=== PATIENT | male | born 1965 | race African-American/Black ===

== ENCOUNTER 2020-05-20 14:42 | Emergency (ER) | payer OTHER ==
[2020-05-20 15:22] LABS: Absolute Lymphocytes (CBC) 1.5 K/uL (0.7-4.9); Basophils % 1.3 % (0-1.3); Hematocrit 47.1 % (39.6-49.0); Lymphocytes % 32.3 % (15.3-44.8); MPV 9.8 fL (7.6-11.3); Protime INR 1.03; RBC Red Blood Cell Count 5.42 M/uL (4.33-5.43)
[2020-05-20 15:48] LABS: ALT/SGPT 30 U/L (12-78); AST/SGOT 19 U/L (15-37); Albumin 3.8 g/dL (3.4-5.0); Alkaline Phosphatase 60 U/L (45-117); BUN Blood Urea Nitrogen 26 mg/dL (7-18); Bicarbonate 23 mmol/L (21-32); Bilirubin Direct 0.1 mg/dL (0-0.2); Bilirubin Total 0.5 mg/dL (0.2-1.0); Glucose Level 106 mg/dL (74-106); Magnesium 2.1 mg/dL (1.8-2.4); Potassium 3.6 mmol/L (3.5-5.1); Protein, Total 8.1 g/dL (6.4-8.2); Sodium Level 139 mmol/L (136-145); Troponin (Emerg Dept Use Only) < 0.02 ng/mL (0.0-0.045)
--- NOTE | 2020-05-20 16:08 | RAD REPORT ---
EXAM DESCRIPTION: Dima Single View05/20/2020 3:35 pm CLINICAL HISTORY: Chest pain COMPARISON: none FINDINGS: The lungs appear clear of acute infiltrate. The heart is normal size IMPRESSION: No acute abnormalities displayed
[2020-05-20 16:11] LABS: NT PRO-BNP < 5 pg/mL (<125)
--- NOTE | 2020-05-20 18:15 | ER ---
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 Reports HX of CAD and heart attack. Denies Injury to chest. Denies other symptoms EMS states: Chest pain. Nitro SL x 2 given. IV started on RFA 20G. Sinus tach on 12L HR 102. BGL 109. Coronavirus screen: Client denies travel out of the [place] in the last 14 days. At this time, the client does not indicate any symptoms associated with coronavirus-19. The client reports previous COVID testing was negative. Date of collection: March 2020. Ebola Screen: Patient negative for fever greater than or equal to 101.5 degrees Fahrenheit, and additional compatible Ebola Virus Disease symptoms Patient denies exposure to infectious person. Patient denies travel to an Ebola-affected area in the 21 days before illness onset. No symptoms or risks identified at this time. Initial Sepsis Screen: Does the patient meet any 2 criteria? No. Patient's initial sepsis screen is negative. Does the patient have a suspected source of infection? No. Patient's initial sepsis screen is negative. Risk Assessment: Do you want to hurt yourself or someone else? Patient reports no desire to harm self or others. Onset of symptoms was May 20, 2020 at 12:45. 14:45 Method Of Arrival: EMS: [facility] ca1 14:45 Acuity: JHON 3 ca1 Triage Assessment: 14:55 General: Appears in no apparent distress. Behavior is calm, cooperative, appropriate ca1 for age. Pain: Complains of pain in anterior aspect of left upper chest Pain radiates to left arm Pain currently is 6 out of 10 on a pain scale. Quality of pain is described as squeezing, Pain began 2 hours ago. Is intermittent. Cardiovascular: Heart tones S1 S2 present Capillary refill < 3 seconds Patient's skin is warm and dry. Rhythm is sinus rhythm. Historical: - Allergies: 14:54 No Known Allergies; ca1 - PMHx: 14:54 CAD; Myocardial infarction; Hypertension; High Cholesterol; ca1 - PSHx: 14:54 None; ca1 - Immunization history:: Adult Immunizations up to date. - Social history:: Smoking status: Patient denies any tobacco usage or history of. Screenin:55 Abuse screen: Denies threats or abuse. Denies injuries from another. Nutritional ca1 screening: No deficits noted. Tuberculosis screening: No symptoms or risk factors identified. Fall Risk IV access (20 points). Assessment: 14:45 General: SEE TRIAGE NOTE. bp 15:55 Reassessment: ALL CURRENT ORDERS COMPLETED, PT HYPERTENSIVE ON MONITOR. bp 17:07 Reassessment: Patient states feeling better. Patient states symptoms have improved. bp Cardiovascular: Rhythm is sinus rhythm. 17:33 Reassessment: REPEAT TROP DRAWN AND SENT. RESULTS PENDING FOR DISPO. bp 17:56 Reassessment: SECOND TROPONIN RESULTED UNREMARKABLE, PROVIDER NOTIFIED. bp 18:18 Reassessment: PT D/C IN PROCESS TO TDCJ, DX WITH CHEST PAIN. TDC TRANSPORT PENDING. bp Vital Signs: 14:45 BP 100 / 78; Pulse 99; Resp 18 S; Temp 98.1(TE); Pulse Ox 96% on R/A; Weight 99.79 kg ca1 (R); Height 5 ft. 6 in. (167.64 cm) (R); Pain 6/10; 14:46 BP 100 / 78; Pulse 104; Resp 18; Temp 98.1; Pulse Ox 96% ; dh4 15:54 BP 108 / 85; Pulse 94; Resp 19; Pulse Ox 97% ; bp 17:07 BP 115 / 86; Pulse 90; Resp 12; Pulse Ox 98% ; bp 17:56 BP 126 / 85; Pulse 96; Resp 11; Pulse Ox 98% ; bp 14:45 Body Mass Index 35.51 (99.79 kg, 167.64 cm) ca1 ED Course: 14:45 Patient arrived in ED. ca1 14:46 Raulito Yang PA is PHCP. jr8 14:46 Jasen Keys MD is Attending Physician. jr8 14:54 Triage completed. ca1 14:54 Arm band placed on right wrist. ca1 14:55 Patient has correct armband on for positive identification. Bed in low position. Call ca1 light in reach. Side rails up X2. pvc monitor on. Pulse ox on. NIBP on. Warm blanket given. 14:55 No provider procedures requiring assistance completed. Maintain EMS IV. Dressing ca1 intact. Good blood return noted. Site clean \T\ dry. Gauge \T\ site: 20G RFA. Patient maintains SpO2 saturation greater than 95% on room air. 15:03 Baldemar Miller, RN is Primary Nurse. bp 15:09 Inserted saline lock: 20 gauge in right hand, using aseptic technique. Blood collected. 4 15:35 XRAY Chest (1 view) In Process Unspecified. EDMS 18:19 IV discontinued, intact, bleeding controlled, No redness/swelling at site. Pressure bp dressing applied. Administered Medications: No medications were administered Outcome: 18:14 Discharge ordered by . shirin 18:19 Discharged to Law Enforcement bp 18:19 Condition: stable 18:19 Discharge instructions given to patient, police, Instructed on discharge instructions, follow up and referral plans. Demonstrated understanding of instructions, follow-up care. 18:42 Patient left the ED. 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 Reports HX of CAD and heart attack. Denies Injury to chest. Denies other symptoms EMS states: Chest pain. Nitro SL x 2 given. IV started on RFA 20G. Sinus tach on 12L HR 102. BGL 109 ca1 18:29 18:18 Reassessment: PT D/C IN PROCESS TO TDCJ, DX WITH CHEST PAIN bp bp
--- NOTE | 2020-05-20 18:16 | EDPHYS ---
Physician Documentation [facility] Name: Fede Bowman Age: 55 yrs Sex: Male : 1965 Arrival Date: 05/20/2020 Time: 14:45 Bed 19 Private MD: ED Physician Jasen Keys HPI: 05/20 15:58 This 55 yrs old Black Male presents to ER via EMS with complaints of Chest Pain. jr8 15:58 The patient or guardian reports chest pain that is located primarily in the anterior jr8 chest wall, left. Onset: acutely, today. The pain radiates to the left arm. Associated signs and symptoms: The patient has no apparent associated signs or symptoms. The chest pain is described as a pressure. Duration: The patient or guardian reports a single episode, that is still ongoing. Modifying factors: The symptoms are alleviated by NTG, X2. the symptoms are aggravated by nothing. Severity of pain: At its worst the pain was moderate in the emergency department the pain has improved mildly. The patient has experienced similar episodes in the past, a few times. The patient has not recently seen a physician. Patient stated that he has known history of CAD with chest pain. Stated that he occasionally has CP. Today around 1 pm started to have pain. Was given aspirin and Nitro at unit with some relief . Historical: - Allergies: 14:54 No Known Allergies; ca1 - PMHx: 14:54 CAD; Myocardial infarction; Hypertension; High Cholesterol; ca1 - PSHx: 14:54 None; ca1 - Immunization history:: Adult Immunizations up to date. - Social history:: Smoking status: Patient denies any tobacco usage or history of. ROS: 15:58 Eyes: Negative for injury, pain, redness, and discharge, ENT: Negative for injury, jr8 pain, and discharge, Neck: Negative for injury, pain, and swelling, Respiratory: Negative for shortness of breath, cough, wheezing, and pleuritic chest pain, Abdomen/GI: Negative for abdominal pain, nausea, vomiting, diarrhea, and constipation, Back: Negative for injury and pain, MS/Extremity: Negative for injury and deformity, Skin: Negative for injury, rash, and discoloration, Neuro: Negative for headache, weakness, numbness, tingling, and seizure. 15:58 Cardiovascular: Positive for chest pain, Negative for edema, orthopnea, palpitations. Exam: 15:58 Eyes: Pupils equal round and reactive to light, extra-ocular motions intact. Lids and jr8 lashes normal. Conjunctiva and sclera are non-icteric and not injected. Cornea within normal limits. Periorbital areas with no swelling, redness, or edema. ENT: Nares patent. No nasal discharge, no septal abnormalities noted. Tympanic membranes are normal and external auditory canals are clear. Oropharynx with no redness, swelling, or masses, exudates, or evidence of obstruction, uvula midline. Mucous membranes moist. Neck: Trachea midline, no thyromegaly or masses palpated, and no cervical lymphadenopathy. Supple, full range of motion without nuchal rigidity, or vertebral point tenderness. No Meningismus. Cardiovascular: Regular rate and rhythm with a normal S1 and S2. No gallops, murmurs, or rubs. Normal PMI, no JVD. No pulse deficits. Respiratory: Lungs have equal breath sounds bilaterally, clear to auscultation and percussion. No rales, rhonchi or wheezes noted. No increased work of breathing, no retractions or nasal flaring. Abdomen/GI: Soft, non-tender, with normal bowel sounds. No distension or tympany. No guarding or rebound. No evidence of tenderness throughout. Back: No spinal tenderness. No costovertebral tenderness. Full range of motion. Skin: Warm, dry with normal turgor. Normal color with no rashes, no lesions, and no evidence of cellulitis. MS/ Extremity: Pulses equal, no cyanosis. Neurovascular intact. Full, normal range of motion. Neuro: Awake and alert, GCS 15, oriented to person, place, time, and situation. Cranial nerves II-XII grossly intact. Motor strength 5/5 in all extremities. Sensory grossly intact. Cerebellar exam normal. Normal gait. Vital Signs: 14:45 BP 100 / 78; Pulse 99; Resp 18 S; Temp 98.1(TE); Pulse Ox 96% on R/A; Weight 99.79 kg ca1 (R); Height 5 ft. 6 in. (167.64 cm) (R); Pain 6/10; 14:46 BP 100 / 78; Pulse 104; Resp 18; Temp 98.1; Pulse Ox 96% ; dh4 15:54 BP 108 / 85; Pulse 94; Resp 19; Pulse Ox 97% ; bp 17:07 BP 115 / 86; Pulse 90; Resp 12; Pulse Ox 98% ; bp 17:56 BP 126 / 85; Pulse 96; Resp 11; Pulse Ox 98% ; bp 14:45 Body Mass Index 35.51 (99.79 kg, 167.64 cm) ca1 MDM: 14:46 Patient medically screened. jr8 18:14 The patient was not given aspirin in the Emergency Department. Patient reports taking jr8 aspirin within the past 24 hours. Data reviewed: vital signs, nurses notes, lab test result(s), EKG, radiologic studies, plain films. Data interpreted: Pulse oximetry: on room air is 98 %. Interpretation: normal. Counseling: I had a detailed discussion with the patient and/or guardian regarding: the historical points, exam findings, and any diagnostic results supporting the discharge/admit diagnosis, lab results, radiology results, the need for outpatient follow up, a internet designer, to return to the emergency department if symptoms worsen or persist or if there are any questions or concerns that arise at home. 05/20 14:46 Order name: Basic Metabolic Panel; Complete Time: 16:24 05/20 14:46 Order name: CBC with Diff; Complete Time: 15:05/20 14:46 Order name: LFT's; Complete Time: 16:24 05/20 14:46 Order name: Magnesium; Complete Time: 16:24 05/20 14:46 Order name: NT PRO-BNP; Complete Time: 16:24 05/20 14:46 Order name: PT-INR; Complete Time: 15:26 05/20 14:46 Order name: Troponin (emerg Dept Use Only); Complete Time: 16:24 05/20 14:46 Order name: XRAY Chest (1 view); Complete Time: 16:11 05/20 14:46 Order name: EKG; Complete Time: 14:47 05/20 14:46 Order name: Cardiac monitoring; Complete Time: 15:03 05/20 14:46 Order name: EKG - Nurse/Tech; Complete Time: 15:03 05/20 14:46 Order name: IV Saline Lock; Complete Time: 15:05/20 14:46 Order name: Labs collected and sent; Complete Time: 15:04 8 05/20 17:20 Order name: Troponin (emerg Dept Use Only); Complete Time: 18:13 8 05/20 14:46 Order name: O2 Per Protocol; Complete Time: 15:04 8 05/20 14:46 Order name: O2 Sat Monitoring; Complete Time: 15:04 Administered Medications: No medications were administered Disposition: 18:56 Co-signature as Attending Physician, Jasen Keys MD. rn Disposition: 05/20/20 18:14 Discharged to Home. Impression: Chest pain, unspecified. - Condition is Stable. - Discharge Instructions: Nonspecific Chest Pain. - Medication Reconciliation Form, Thank You Letter, Antibiotic Education, Prescription Opioid Use form. - Follow up: Private Physician; When: 2 - 3 days; Reason: Recheck today's complaints, Continuance of care, Re-evaluation by your physician. - Problem is new. - Symptoms have improved. Signatures: Dispatcher [employer] EDMS Jasen Keys MD MD rn Roszak, Josh, PA PA jr8 Baldemar Miller RN RN bp AcSabrina pedraza RN RN ca1 Corrections: (The following items were deleted from the chart) 18:42 18:14 05/20/2020 18:14 Discharged to Home. Impression: Chest pain, unspecified. bp Condition is Stable. Forms are Medication Reconciliation Form, Thank You Letter, Antibiotic Education, Prescription Opioid Use. Follow up: Private Physician; When: 2 - 3 days; Reason: Recheck today's complaints, Continuance of care, Re-evaluation by your physician. Problem is new. Symptoms have improved. jr8
[2020-05-20 19:39] VITALS: TEMP 98.1
[2020-05-20 19:44] VITALS: O2SAT 98
[2020-05-20 19:47] VITALS: BP 126/85
--- NOTE | 2020-05-23 11:19 | EKG ---
Test Date: 2020-05-20 Test Time: 15:36:46 C4 Planner: CHRISTINE MEASUREMENT RESULTS: Intervals: Rate: 87 ID: [id number] QRSD: 76 QT: 324 QTc: 389 [place]: P: 73 ID: [id number] QRS: 53 T: 25 INTERPRETIVE STATEMENTS: Normal sinus rhythm Nonspecific ST and T wave abnormality Abnormal ECG No previous ECG available for comparison Electronically Signed On 05-23-20 11:14:48 CDT by Ottoniel Rowan
== END 2020-05-20 18:42 | disposition home or self-care (01) ==
LOC: ER 14:42
DX: R07.9 Chest pain, unspecified (principal); I10 Essential (primary) hypertension
CPT/HCPCS: 36415; 71045; 80048; 80076; 83735; 83880; 84484; 85025; 85610; 93005; 99285